=== PATIENT | female | born 1965 | race Caucasian/White ===

== ENCOUNTER 2024-12-01 07:36 | Day surgery (SDC) | payer BC ==
[2024-12-01] MEDS ORDERED: Propofol 200 MG/20 ML SDV ONE ×2 (08:12→09:08)
[2024-12-01] MEDS: Lactated Ringers 1,000 ML IV SCH (08:14)
[2024-12-01] MEDS ORDERED: ePHEDrine 50 MG/ML SDV ONE (09:07)
== END 2024-12-01 10:08 | disposition home or self-care (01) ==
LOC: MW.SDS 07:36
PROVIDERS: ATTEND Surgery
DX: Z12.11 Encounter for screening for malignant neoplasm of colon (principal); D12.0 Benign neoplasm of cecum; D12.6 Benign neoplasm of colon, unspecified; I10 Essential (primary) hypertension; E66.01 Morbid (severe) obesity due to excess calories; Z68.37 Body mass index [BMI] 37.0-37.9, adult; Z79.899 Other long term (current) drug therapy
CPT/HCPCS: 45385; J2003; J2704; J7120; 00811; J3490